=== PATIENT | female | born 1970 | race Caucasian/White ===

== ENCOUNTER 2019-05-16 07:45 | Emergency (ER) | payer OTHER ==
[~2019-05-16] VITALS: Ht 160 cm; Wt 86.4 kg
[2019-05-16] MEDS ORDERED: LIDOCAINE 1% 10 ML VIAL INJ ONE (08:15)
[2019-05-16] MEDS ORDERED: PERTUSS(ACELL),DIPH,TET VAC/PF 0.5 ML VIAL IM ONE (08:15)
[2019-05-16] MEDS ORDERED: BACITRACIN 0.9 GM PACKET OINTMENT TP ONE (08:15)
[2019-05-16 08:30] VITALS: BP 147/77
[2019-05-16] MEDS ORDERED: AMOX TR/POT CLAV 875 MG/125 MG TABLET PO ONE (09:00)
== END 2019-05-16 10:17 | disposition home or self-care (01) ==
LOC: EMS 07:51
DX: S61.210A Laceration without foreign body of right index finger without damage to nail, initial encounter (principal); W45.8XXA Other foreign body or object entering through skin, initial encounter; Y93.89 Activity, other specified; Y92.89 Other specified places as the place of occurrence of the external cause; Y99.8 Other external cause status
CPT/HCPCS: 12001; 90471; 90715; 99283; J3490